=== PATIENT | female | born 1990 | race Caucasian/White ===

== ENCOUNTER 2018-12-06 14:39 | Emergency (ER) | payer MEDICAID ==
[~2018-12-06 14:39] MED LIST: IBUP-1222 PO; OXYC-302 PO; PREN1TAB60 PO
--- NOTE | 2018-12-06 14:45 | NUR ---
28 Y/O FEMALE BIB AMBULANCE WITH C/O VB. PER PT "I DELIVERED MY BABY 10/07. I STARTED BLEEDING TWO DAYS PRIOR TO DELIVERY. I CAME TO ED WHEN I WAS 27 WEEKS . I WAS HERE FOR 3 WEEKS. I BLED FOR THE FIRST 6 WEEKS, THEN IT STOPPED FOR ABOUT 2 WEEKS. I JUST STARTED BLEEDING AGAIN TODAY. I PASSED A BIG CLOT, THEN I PASSED OUT." PER EMS REPORT BILATERAL PIV ESTABLISHED SEO ANALYST. 500 mL NS ADMINISTERED SEO ANALYST. FIRST BP WAS 70/40. AFTER NS, PT BP WAS 90/50. FSBS 99. PT PLACED ON CONT PULSE OX,NIBP, ANSWERING SERVICE TELEPHONE OPERATOR. FAMILY BEDSIDE. NO C/O TRAUMA.
--- NOTE | 2018-12-06 14:50 | NUR ---
PER SIGNIFICANT OTHER "SHE'S BEEN THIS WAY SINCE ABOUT 0500 THIS MORNING. IT ALL STARTED HAPPENING AFTER WE HAD INTERCOURSE."
[2018-12-06] MEDS ORDERED: SODIUM CHLORIDE FLUSH 10ML SYR IVF ONE (15:00)
[2018-12-06] MEDS ORDERED: SODIUM CHLORIDE 0.9% 1,000ML IVBOLUS ONE (15:00)
[2018-12-06 15:07] LABS: BASOPHILS # (AUTO) 0.03 x10^3/uL (0-0.1); BASOPHILS % (AUTO) 0 % (0-1); EOSINOPHILS # (AUTO) 0.09 x10^3/uL (0-0.4); EOSINOPHILS % (AUTO) 1 % (1-7); LYMPHOCYTES # (AUTO) 2.27 x10^3/uL (1-3.4); LYMPHOCYTES % (AUTO) 19 % (22-44); MD NO; MEAN CORPUSCULAR HEMOGLOBIN 28.7 pg (27.0-34.8); MEAN CORPUSCULAR HGB CONC 32.8 g/dL (32.4-35.8); MEAN CORPUSCULAR VOLUME 87.5 fL (80-100); MEAN PLATELET VOLUME 8.6 fL (7.4-10.4); MONOCYTES # (AUTO) 0.81 x10^3/uL (0.2-0.8); MONOCYTES % (AUTO) 7 % (2-9); NEUTROPHILS # (AUTO) 8.89 x10^3/uL (1.8-6.8); NEUTROPHILS % (AUTO) 74 % (42-75); PLATELET COUNT 228 x10^3/uL (130-400); RED BLOOD COUNT 4.22 x10^6/uL (3.82-5.3); RED CELL DISTRIBUTION WIDTH 13.5 % (9.6-15.2)
[2018-12-06 15:11] LABS: INTERNATIONAL NORMALIZED RATIO 1.09 (0.93-1.1); PROTHROMBIN TIME 11.4 Seconds (9.6-11.5)
[2018-12-06 15:12] LABS: ALANINE AMINOTRANSFERASE 30 U/L (12-78); ALBUMIN 3.3 g/dL (3.4-5.0); ANION GAP 9 mmol/L (5-15); CALCIUM 7.8 mg/dL (8.5-10.1); CHLORIDE 112 mmol/L (98-107); CREATININE 0.72 mg/dL (0.55-1.02)
[2018-12-06 15:17] LABS: ALKALINE PHOSPHATASE 63 U/L (45-117); BILIRUBIN,TOTAL 0.5 mg/dL (0.2-1.0); TOTAL PROTEIN 6.4 g/dL (6.4-8.2)
--- NOTE | 2018-12-06 15:21 | NUR ---
PT BACK FROM ULTRASOUND. THIS RN BEDSIDE WITH PT DURING US. PT TOLERATED WITH NO COMPLICATIONS.
--- NOTE | 2018-12-06 15:57 | NUR ---
PT TRANSFERRED TO ROOM 25. PT STABLE. VSS. BEDSIDE REPORT TO [facility] TRIPP. PER EDMD, CBC TO BE ORDERED FOR 1800. MONITOR PT.
--- NOTE | 2018-12-06 15:59 | NUR ---
ASSUMED CARE OF PT. SKIN P/W/D AND NO VB AT THIS TIME. WILL CONTINUE TO MONITOR
--- NOTE | 2018-12-06 17:27 | NUR ---
PROVIDED DINNER TRAY. AWAITING TIMED CBC.
[2018-12-06 17:58] LABS: BASOPHILS # (AUTO) 0.03 x10^3/uL (0-0.1); BASOPHILS % (AUTO) 0 % (0-1); EOSINOPHILS # (AUTO) 0.05 x10^3/uL (0-0.4); EOSINOPHILS % (AUTO) 1 % (1-7); LYMPHOCYTES # (AUTO) 1.87 x10^3/uL (1-3.4); LYMPHOCYTES % (AUTO) 17 % (22-44); MD NO; MEAN CORPUSCULAR HEMOGLOBIN 28.6 pg (27.0-34.8); MEAN CORPUSCULAR VOLUME 86.7 fL (80-100); MEAN PLATELET VOLUME 8.3 fL (7.4-10.4); MONOCYTES # (AUTO) 0.53 x10^3/uL (0.2-0.8); MONOCYTES % (AUTO) 5 % (2-9); NEUTROPHILS # (AUTO) 8.53 x10^3/uL (1.8-6.8); NEUTROPHILS % (AUTO) 77 % (42-75); PLATELET COUNT 248 x10^3/uL (130-400); RED BLOOD COUNT 4.08 x10^6/uL (3.82-5.3)
--- NOTE | 2018-12-06 18:15 | NUR ---
UOB TO BATHROOM WITHOUT ASSISTANCE. PT STATES MINIMAL VAGINAL BLEEDING
[2018-12-06 18:25] LABS: CULTURE INDICATED? YES; MICROSCOPIC INDICATED
[2018-12-06 19:01] VITALS: BP 94/68
== END 2018-12-06 19:04 | disposition home or self-care (01) ==
LOC: ED 17:03
DX: N92.0 Excessive and frequent menstruation with regular cycle (principal); N93.0 Postcoital and contact bleeding; R55 Syncope and collapse
CPT/HCPCS: 36415; 76830; 80053; 81001; 84703; 85025; 85610; 85730; 86850; 86900; 87086; 96360; 99291; J7030